=== PATIENT | female | born 1990 | race Caucasian/White ===

== ENCOUNTER 2021-04-07 21:57 | Inpatient (IN) | payer BC ==
[2021-04-07] MEDS ORDERED: Methylergonovine 0.2 MG/1 ML Amp IM PRN (22:28)
[2021-04-07] MEDS ORDERED: Sodium Chloride 0.9% 10 ML Syringe FLUSH PRN (22:28)
[2021-04-07] MEDS ORDERED: Tranexamic Acid 1,000 MG in Sodium Chloride 0.9% 100 ML IV PRN (22:28)
[2021-04-07] MEDS ORDERED: Lactated Ringers 1,000 ML IV ONE (22:28)
[2021-04-07] MEDS ORDERED: Misoprostol 400 MCG (4 X 100 MCG TAB) RECTAL PRN (22:28)
[2021-04-07] MEDS ORDERED: Carboprost Tromethamine 250 MCG/1 ML Amp IM PRN (22:28)
[2021-04-07] MEDS ORDERED: Lidocaine 1% 30 ML SDV INJECT PRN (22:28)
[2021-04-07] MEDS ORDERED: Acetaminophen 325 MG Tab PO PRN (22:28)
[2021-04-07] MEDS ORDERED: Ondansetron 4 MG/2 ML SDV IVPUSH PRN (22:28)
[2021-04-07] MEDS ORDERED: Oxytocin/Normal Saline 30 UNIT/500 ML BAG IV SCH (22:30)
[2021-04-07] MEDS: Lactated Ringers 1,000 ML IV SCH (23:13)
--- NOTE | 2021-04-07 23:23 | PCM.SN.2 ---
- Free Text/Narrative Note: Intrathecal. Sitting position, sterile prep and drape. 1% lidocaine w bicarb for skinwheal to L2 L3 interspace x 1, introducer and 24 ga Pencan x 1. Pos CSF, neg heme, neg parasthesia. 0.1 ml pf 1:000 epi, 20 mcg pf Sufenta, 30 mcg pf Fentanyl, 0.4 ml pf NS and 6 mg of 0.75% pf Marcaine injected after CSF aspiration. Pt to L lateral position. Procedure time 1265 to 2330 Time Documentation
--- NOTE | 2021-04-08 00:33 | OBOUT ---
DATE: 04/07/2021 DATE AND TIME OF NST: 04/07/2021, 2230 to 2248 hours. REASON FOR NST: 1. Intrauterine 39 and 4/7 weeks, confirmed with 20 and 1/7 weeks' ultrasound. 2. Active labor. 3. GBS negative. 4. History of LEEP. 5. History of fast labors. 6. Gestational versus transient hypertension versus preeclampsia. 7. G3, P2-0-0-2. NST INTERPRETATION: During this time period, heart tone baseline is approximately 125 and at least two 15 x 15 beats per exam acceleration making this strip reactive as well as reassuring. Tocometer reveals potential 9 contractions felt by patient. Blood pressure after this NST, first one done was 151/82, heart rate 97. Vaginal exam revealed to be 5 cm, 100% effaced, 0 to plus 1 station, vertex suspected, and bulging bag of water felt. ASSESSMENT: 1. Nonstress test, reactive and reassuring. 2. Tocometer with contractions. 3. Gestational hypertension versus preeclampsia. PLAN: -induced hypertension panel will be done, and we will continue to follow clinically and closely. Intrathecal was called for given patient's history and request, and at the current time of dictation, that has been given, and we will continue and maternal monitoring. PIH panel was pending. A CBC was done and revealed a white cell count of 15.4, a hemoglobin of 11.9, and platelets of 173 with a PIH panel notable for LDH minimally elevated at 238. Urinalysis with 30 protein, 15 ketones, large occult blood, large leukocyte esterase, with pending urine protein-creatinine ratio. We will continue to follow clinically and closely. Last blood pressure after intrathecal at current time of dictation 117/64 with heart rate of 83, and patient denies any headaches, visual changes, or upper abdominal pain. For history and physical, please see one done in conjunction through [employer], update sticker applied noting that patient had contractions starting on the evening of 04/07/2021 at 2000 hours every 2 to 3 minutes felt in the lower abdomen, rated 5 to 8 out of 10 associated with some bloody show, and objective findings noted as above. Otherwise, review of systems reviewed and felt to be contributory as noted in the chart. MODL /[id number] MTDD
[2021-04-08] MEDS: Lactated Ringers 1,000 ML IV SCH (00:43)
[2021-04-08] MEDS ORDERED: Benzocaine/Menthol 20%-0.5% Spray 78 GM Cannister TOP PRN (01:50)
[2021-04-08] MEDS ORDERED: Oxytocin 10 Units/1 ML SDV IM PRN (01:50)
[2021-04-08] MEDS ORDERED: Zolpidem 5 MG Tab PO PRN (01:50)
[2021-04-08] MEDS ORDERED: Simethicone 80 MG Tab.Chew PO PRN (01:50)
--- NOTE | 2021-04-08 02:39 | DEL ---
DATE: 04/08/2021 PREOPERATIVE DIAGNOSES: 1. 39-4/7 weeks confirmed with 20-1/7 ultrasound. 2. Active labor. 3. Group B streptococcus negative. 4. History of LEEP. 5. G3, P2-0-0-2. 6. History of fast labors. 7. Preeclampsia with mild features. POSTOPERATIVE DIAGNOSES: 1. 39-5/7 weeks confirmed with 20-1/7 ultrasound - delivered. 2. Active labor. 3. Group B streptococcus negative. 4. History of LEEP. 5. G3, P3-0-0-2. 6. History of fast labors. 7. Preeclampsia with mild features. PROCEDURES PERFORMED: NST followed by an artificial rupture of membranes and spontaneous vaginal delivery. METAL MOVER: Carmella Hernández, MS3. ANESTHESIA: The patient received intrathecal. EBL: 150 mL. FINDINGS: Female, score 8 and 9. Weight 3245 g. SUMMARY OF THE EVENT: The patient is a 30-year-old female, G3, P2-0-0-2, intrauterine at 39-4/7 weeks at presentation with delivery at 39-5/7 weeks. She originally underwent NST, followed by artificial rupture of membranes, followed by intrathecal. She had one elevated blood pressure on admission and PIH labs confirmed preeclampsia with mild features, however, after intrathecal her blood pressure dropped and did not have another elevated value for the rest of delivery. She then was fully dilated, and Dr. Cosby was called to the room, donned sterile gown and gloves. With the patient pushing, vertex was delivered in FAUSTO presentation, followed by anterior and posterior shoulders as well as rest of the without difficulty. Mouth and nares were suctioned. Cord was doubly clamped, cut, and the was resuscitated on mother's abdomen. Approximately 10 mL of cord blood was obtained for labs. Placenta then delivered with gentle cord traction and fundal massage within 5 to 10 minutes. Thereafter, perineum, vagina, and perirectal areas were examined, there was no bleeding or lacerations noted. Mother and infant are currently stable at the time of dictation. I evaluated the patient, did delivery and corrected the above-Adin Cosby MD MODL /[id number] MTDEnma
[2021-04-08] MEDS: Docusate Sodium 100 MG Cap PO PRN ×2 (07:54→20:43)
[2021-04-08] MEDS: Ibuprofen 800 MG Tab PO PRN ×2 (07:54→17:08)
[2021-04-08] MEDS: Prenatal Multivitamin with Calcium/Folic Acid/Iron Tab PO SCH (10:12)
--- NOTE | 2021-04-08 11:09 | PN ---
DATE: 04/07/2021 SUBJECTIVE: The patient is status post intrathecal. Comfortable at this time. OBJECTIVE: VITAL SIGNS: Last blood pressure 115/63, heart rate 83, heart tones in the 120s, good accelerations. : Vaginal exam felt to be reactive and reassuring. Tocometer reveals contractions every 1-1/2 minutes. Vaginal exam reveals to be 5 cm, 100% effaced, 0 to +1 station, vertex suspected. Artificial rupture of membranes done after discussion with patient yielding minimal amounts of clear fluid intermixed with some bloody show. ASSESSMENT AND PLAN: Intrauterine at 39-4/7 weeks, confirmed with 20- 1/7-week ultrasound, and G3, P2-0-0-2, in active labor. Group B Streptococcus negative status, history of LEEP, history of fast labors, and being worked up currently for gestational versus transient hypertension versus preeclampsia with labs pending. Actually, protein creatinine ratio just returned at 1768.3, so suspect potential for preeclampsia with mild features at this point in time. The patient denies any headaches, visual changes, or upper abdominal pain. She has had elevated blood pressure before the intrathecal. Afterwards, they went lower and most likely related to intrathecal. We will continue to follow clinically and closely at this point in time for any other signs and symptoms of preeclampsia. [facility] /[id number]
[2021-04-09] MEDS: Ibuprofen 800 MG Tab PO PRN (03:32)
[2021-04-09] MEDS: Docusate Sodium 100 MG Cap PO PRN (09:38)
[2021-04-09] MEDS: Prenatal Multivitamin with Calcium/Folic Acid/Iron Tab PO SCH (09:38)
[2021-04-09] MEDS ORDERED: Sodium Chloride 0.9% 20 ML SDV ONE (11:44)
[2021-04-09] MEDS ORDERED: EPINEPHrine 1 MG/ML SDV ONE (11:44)
[2021-04-09] MEDS ORDERED: fentaNYL 100 MCG/2 ML SDV ITHECAL ONE (11:44)
[2021-04-09] MEDS ORDERED: Sodium Bicarbonate 4.2% 2.5 MEQ/5 ML SDV ONE (11:44)
--- NOTE | 2021-04-09 23:21 | DISCH ---
ADMITTING DIAGNOSES: 1. 39 and 4/7 week intrauterine confirmed with 20 and 1/7 week ultrasound. 2. Active labor. 3. GBS negative. 4. History of LEEP. 5. G3, P2-0-0-2. 6. History of fast labors. 7. Preeclampsia with mild features. DISCHARGE DIAGNOSES: 1. 39 and 5/7 week intrauterine confirmed with 20 and 1/7 week ultrasound - delivered. 2. G3, P3-0-0-3. 3. Active labor. 4. GBS negative. 5. History of LEEP. 6. History of fast labors. 7. Preeclampsia with mild features. PROCEDURES PERFORMED: Spontaneous vaginal delivery without repair under intrathecal anesthesia, artificial rupture of membranes and NST. BRIEF HISTORY: A 30-year-old female with the above-listed diagnoses presented to hospital in spontaneous labor. She received intrathecal for pain management. Labor was complicated by one increased blood pressure for which the [facility] labs did confirm preeclampsia with a protein to creatinine ratio of 1768.3. However, after the intrathecal, her blood pressures dropped and she did not have an increased blood pressure for the rest of labor. No other complications of delivery. She gave to a Baby girl with Apgars of 8 and 9 and a weight of 3245 g HOSPITAL COURSE: Has been good. Bleeding has been minimal. is going well. Ambulating, voiding, and passing gas without issues. No signs or symptoms of infection, hemorrhage or other complications. DISCHARGE CONDITION: Good. PHYSICAL EXAMINATION: Vital Signs: Temp 98.2, heart rate 57, respiratory rate 16. Blood pressures , she had one increase at 140/77, the rest have been in the 120s or below. Heart: Regular without obvious murmur. Lungs: Clear to auscultation bilaterally with good chest expansion. Abdomen: Soft, nontender. Fundus is firm and 2 cm below umbilicus. Extremities: No edema, erythema or tenderness noted. LABORATORY RESULTS: Admission hemoglobin and platelets were 11.9 and 173. Discharge hemoglobin and platelets are 11.1 and 165. DISPOSITION: Home with family. MEDICATIONS: Dymo-fso-xoehenu Tylenol and ibuprofen as needed for pain. Continue vitamin with iron. FOLLOWUP: Will be seen in 6 weeks for routine examination. Baby will be seen on Friday for weight and bilirubin check. INSTRUCTIONS: Routine post vaginal delivery instructions for mother were provided and all questions answered. seen patient with medical student, agreed and changes made appropriately. -HUSAM ART /[id number] LUIS F
== END 2021-04-09 11:45 | disposition home or self-care (01) | DRG 560 ==
LOC: DL.OBCHECK 21:57 → DL.OB 22:28 → OBSVTOIN 04-08 01:32
PROVIDERS: ADMIT Family Medicine; ATTEND Family Medicine
PROC: 10E0XZZ Delivery of Products of Conception, External Approach (ICD-10-PCS; principal; 2021-04-08)
PROC: 10907ZC Drainage of Amniotic Fluid, Therapeutic from Products of Conception, Via Natural or Artificial Opening (ICD-10-PCS; 2021-04-08)
PROC: 3E0R3BZ Introduction of Anesthetic Agent into Spinal Canal, Percutaneous Approach (ICD-10-PCS; 2021-04-08)
PROC: 00HU33Z Insertion of Infusion Device into Spinal Canal, Percutaneous Approach (ICD-10-PCS; 2021-04-08)
DX: O14.04 Mild to moderate pre-eclampsia, complicating childbirth (principal); Z37.0 Single live birth; Z20.822 Contact with and (suspected) exposure to COVID-19; Z3A.39 39 weeks gestation of pregnancy; Z28.82 Immunization not carried out because of caregiver refusal
CPT/HCPCS: 01967; 36415; 59409; 81003; 82565; 82570; 83615; 84156; 84450; 84460; 84520; 84550; 85027; A9270-GY; J0171; J2405; J2590; J3010; J7120; U0002

== ENCOUNTER 2023-08-02 06:04 | Inpatient (IN) | payer BC ==
[2023-08-02] MEDS ORDERED: Tranexamic Acid 1,000 MG in Sodium Chloride 0.9% 100 ML IV PRN (06:09)
[2023-08-02] MEDS ORDERED: Lactated Ringers 1,000 ML IV ONE (06:09)
[2023-08-02] MEDS ORDERED: Sodium Chloride 0.9% 10 ML Syringe FLUSH PRN ×2 (06:09→15:39)
[2023-08-02] MEDS ORDERED: Lidocaine 1% 30 ML SDV INJECT ONE (06:09)
[2023-08-02] MEDS ORDERED: Carboprost Tromethamine 250 MCG/1 ML Amp IM PRN (06:09)
[2023-08-02] MEDS ORDERED: Ondansetron 4 MG/2 ML SDV IVPUSH PRN (06:09)
[2023-08-02] MEDS ORDERED: Acetaminophen 325 MG Tab PO PRN (06:09)
[2023-08-02] MEDS ORDERED: Misoprostol 400 MCG (4 X 100 MCG TAB) RECTAL PRN (06:09)
[2023-08-02] MEDS ORDERED: Methylergonovine 0.2 MG/1 ML Amp IM PRN (06:09)
[2023-08-02 06:35] LABS: HEMATOCRIT 41.8 % (37.0-47.0); HEMOGLOBIN 13.5 g/dL (12.0-16.0); MEAN CORPUSCULAR HEMOGLOBIN 28.7 pg (27.0-34.0); MEAN CORPUSCULAR HGB CONC 32.3 g/dL (33.0-35.0); MEAN CORPUSCULAR VOLUME 88.9 fL (80-100); RED BLOOD CELL COUNT 4.7 10^6/uL (4.2-5.4); WHITE BLOOD CELL COUNT,WBC 10.4 10^3/uL (5.0-10.0)
[2023-08-02] MEDS: Lactated Ringers 1,000 ML IV SCH ×2 (08:10→17:41)
[2023-08-02] MEDS ORDERED: Acetaminophen 500 MG Tab PO ONE (09:28)
[2023-08-02 09:49] LABS: CREATININE 0.61 mg/dL (0.55-1.02); EST CRCL DRUG DOSING (CG) 126.37 mL/min; URIC ACID 4.4 mg/dL (2.6-6.0)
[2023-08-02 10:17] LABS: APPEARANCE,URINE CLEAR (CLEAR); BILIRUBIN,URINE NEGATIVE (NEGATIVE); COLOR,URINE YELLOW (YELLOW); GLUCOSE,URINE NEGATIVE (NEGATIVE); KETONES,URINE NEGATIVE (NEGATIVE); LEUKOCYTE ESTERASE,URINE NEGATIVE (NEGATIVE); NITRITE,URINE NEGATIVE (NEGATIVE); OCCULT BLOOD,URINE SMALL (NEGATIVE); PROTEIN,URINE NEGATIVE (NEGATIVE); UROBILINOGEN,URINE 0.2 mg/dL (0.2-1.0)
[2023-08-02 10:30] LABS: CREATININE,URINE RAND < 13.00 mg/dL (No establ ref range); PROTEIN,URINE RANDOM < 6.0 mg/dL (0.0-11.9)
[2023-08-02] MEDS ORDERED: Bupivacaine 0.25% 10 ML SDV ONE (13:05)
[2023-08-02] MEDS ORDERED: fentaNYL 100 MCG/2 ML SDV ONE (13:05)
[2023-08-02] MEDS ORDERED: Phenylephrine HCl In 0.9% NaCl 1 MG/10 ML Syringe IVPUSH PRN (13:29)
[2023-08-02] MEDS ORDERED: ePHEDrine 50 MG/ML SDV IVPUSH PRN (13:29)
[2023-08-02] MEDS ORDERED: Ropivacaine 200 MG in Premix Bag 1 BAG EPIDUR SCH (13:30)
[2023-08-02] MEDS: Oxytocin/Normal Saline 30 UNIT/500 ML BAG IV SCH ×2 (15:30→17:44)
[2023-08-02] MEDS ORDERED: Benzocaine/Menthol 20%-0.5% Spray 78 GM Cannister TOP PRN (15:39)
[2023-08-02] MEDS ORDERED: Witch Hazel Medicated Pads 100/Jar TOP PRN (15:39)
[2023-08-02] MEDS ORDERED: Simethicone 80 MG Tab.Chew PO PRN (15:39)
[2023-08-02] MEDS ORDERED: Oxytocin 10 Units/1 ML SDV IM PRN (15:39)
[2023-08-02] MEDS ORDERED: Zolpidem 5 MG Tab PO PRN (15:39)
[2023-08-02] MEDS: Docusate Sodium 100 MG Cap PO PRN (19:34)
[2023-08-02] MEDS: Ibuprofen 800 MG Tab PO PRN (19:34)
[2023-08-03 06:54] LABS: HEMATOCRIT 39.9 % (37.0-47.0); HEMOGLOBIN 12.8 g/dL (12.0-16.0); MEAN CORPUSCULAR HGB CONC 32.1 g/dL (33.0-35.0); MEAN CORPUSCULAR VOLUME 90.5 fL (80-100); RED BLOOD CELL COUNT 4.41 10^6/uL (4.2-5.4); WHITE BLOOD CELL COUNT,WBC 11.1 10^3/uL (5.0-10.0)
[2023-08-03] MEDS ORDERED: Ferrous Sulfate 325 MG Tab PO SCH (08:00)
[2023-08-03] MEDS ORDERED: Prenatal Multivitamin with Calcium/Folic Acid/Iron Tab PO SCH (09:00)
[2023-08-03] MEDS: Ibuprofen 800 MG Tab PO PRN ×2 (09:12→17:34)
[2023-08-03] MEDS: Docusate Sodium 100 MG Cap PO PRN (09:13)
== END 2023-08-03 17:55 | disposition home or self-care (01) | DRG 560 ==
LOC: DL.OBCHECK 06:04 → DL.OB 06:09
PROVIDERS: ADMIT Family Medicine; ATTEND Family Medicine
PROC: 10E0XZZ Delivery of Products of Conception, External Approach (ICD-10-PCS; principal; 2023-08-02)
PROC: 10907ZC Drainage of Amniotic Fluid, Therapeutic from Products of Conception, Via Natural or Artificial Opening (ICD-10-PCS; 2023-08-02)
PROC: 3E0R3BZ Introduction of Anesthetic Agent into Spinal Canal, Percutaneous Approach (ICD-10-PCS; 2023-08-02)
PROC: 00HU33Z Insertion of Infusion Device into Spinal Canal, Percutaneous Approach (ICD-10-PCS; 2023-08-02)
DX: O24.420 Gestational diabetes mellitus in childbirth, diet controlled (principal); O13.4 Gestational [pregnancy-induced] hypertension without significant proteinuria, complicating childbirth; Z37.0 Single live birth; Z3A.38 38 weeks gestation of pregnancy; O45.93 Premature separation of placenta, unspecified, third trimester; O77.0 Labor and delivery complicated by meconium in amniotic fluid
CPT/HCPCS: 36415; 51701; 59409; 59414; 76815; 81003; 82565; 82570; 82947; 83615; 84156; 84450; 84460; 84520; 84550; 85027; A9270-GY; J2590; J7120